=== PATIENT | male | born 2000 | race Caucasian/White ===

== ENCOUNTER → 2018-12-15 | Outpatient (CLI) | payer OTHER ==
--- NOTE | 2018-12-15 14:30 | Diagnostic Imaging Report ---
INDICATION: Injury to right elbow. AP, oblique, and lateral views of the right elbow are obtained. FINDINGS: No fracture or acute bony abnormality is seen. IMPRESSION: Negative right elbow. Dictated by: Dictated on workstation # [id number]
== END ==
LOC: RAD FS 14:15
PROVIDERS: ATTEND Nurse Practitioner
DX: S59.901A Unspecified injury of right elbow, initial encounter (principal)
CPT/HCPCS: 73080

== ENCOUNTER → 2018-12-25 | Outpatient (CLI) | payer OTHER ==
[~2018-12-25] VITALS: Ht 182.9 cm; Wt 83.9 kg
[2018-12-25] MEDS: GADOBUTROL 7.5 MMOL/7.5 ML (GADAVIST) VIAL IV ONE (12:38)
[2018-12-25] MEDS: CATHETER FLUSH 10 ML SYR IVP PRN (12:39)
[2018-12-25] MEDS: IOHEXOL 300 MG/ML 30 ML (OMNIPAQUE 300) VIAL IV ONE (12:39)
--- NOTE | 2018-12-25 13:18 | Diagnostic Imaging Report ---
PROCEDURE: MRI upper extremity any joint with contrast right. TECHNIQUE: Multiplanar, multisequence contrast-enhanced MRI of the right upper extremity was accomplished. INDICATION: Medial elbow pain. COMPARISON: Elbow radiographs of 12/15/2018. FINDINGS: LIGAMENTS: The anterior and posterior bands of the ulnar collateral ligament remain intact. There is mild intermediate signal thickening of the proximal portion of the ulnar collateral ligament that suggests low-grade sprain. The radial collateral ligamentous complex is intact. TENDONS AND MUSCLES: The distal biceps, brachialis and triceps tendons are intact. The origin of the medial common flexor tendons is normal. The origin of the lateral common extensor tendons is normal. The musculature of the forearm and distal upper arm is normal in bulk. BONES AND CARTILAGE: No fracture. Articular cartilage of the elbow is preserved. No osteochondral lesion. SOFT TISSUES: No proliferative synovitis within the elbow joint or loose bodies. No olecranon or bicipitoradial bursitis. The ulnar nerve is normal in configuration without mass effect in the cubital tunnel. Normal fat planes around the median and radial nerves at the level of the elbow. IMPRESSION: 1. Low-grade sprain at the origin of the ulnar collateral ligament without associated ligament tear. 2. No tendon tear. Dictated by: Dictated on workstation # [id number]
--- NOTE | 2018-12-25 19:21 | Diagnostic Imaging Report ---
INDICATION: Right elbow pain. Patient presents for fluoroscopically assisted right elbow injection of gadolinium prior to MRI. Patient was brought to fluoroscopic suite and placed on the table in the prone position. Elbow was placed in a 90 degree flexion with thumb pointed out. The skin was marked. Lateral elbow was prepped and draped in usual sterile fashion. A small amount of 1% lidocaine was utilized for local anesthesia. A 22-gauge needle was advanced into the radiocapitellar space utilizing fluoroscopic assistance. Approximately 7 cc of solution of iodinated contrast, normal saline, and gadolinium was injected. Needle was withdrawn, and hemostasis was obtained using manual compression. Patient tolerated the procedure well and was sent to MRI in satisfactory condition. IMPRESSION: Successful fluoroscopically assisted left elbow injection of gadolinium contrast solution for MRI. Dictated by: Dictated on workstation # [id number]
== END ==
LOC: RAD 10:18
PROVIDERS: ATTEND Orthopaedic Surgery
DX: S53.441D Ulnar collateral ligament sprain of right elbow, subsequent encounter (principal)
CPT/HCPCS: 24220; 73085; 73222; 90471